=== PATIENT | female | born 1985 | race Caucasian/White ===

== ENCOUNTER 2016-10-29 08:24 | Emergency (ER) | payer OTHER ==
[~2016-10-29] VITALS: Ht 170.2 cm; Wt 72.6 kg
[~2016-10-29 08:24] MED LIST: BACTRIM DS TAB1 EACH PO; CYCLOBENZAPRINE5 MG PO; NOHOMEMEDICATIONS; NORCO 5-325 TA1 EACH PO; PERCOCET 5-3251 EACH; TORADOL 10 MG T10 MG PO
[2016-10-29] MEDS ORDERED: MOBIC15 MG PO (09:09)
[2016-10-29] MEDS ORDERED: VALIUM5 MG PO (09:09)
[2016-10-29 09:40] VITALS: BP 118/81
== END 2016-10-29 09:41 | disposition home or self-care (01) ==
LOC: ER 08:24
DX: M46.1 Sacroiliitis, not elsewhere classified (principal); F17.210 Nicotine dependence, cigarettes, uncomplicated; F10.99 Alcohol use, unspecified with unspecified alcohol-induced disorder; Z87.09 Personal history of other diseases of the respiratory system

== ENCOUNTER 2020-04-08 07:25 | Emergency (ER) | payer BC ==
[~2020-04-08] VITALS: Ht 172.7 cm; Wt 90.7 kg
[~2020-04-08 07:25] MED LIST changes: +MOBIC15 MG PO; +VALIUM5 MG PO
[2020-04-08 08:45] VITALS: BP 130/91
[2020-04-08] MEDS ORDERED: FLEXERIL PO (08:59)
[2020-04-08] MEDS ORDERED: NAPROSYN500 MG PO (08:59)
[2020-04-08] MEDS ORDERED: TRAMADOL 50 MG50 MG PO (08:59)
== END 2020-04-08 08:45 | disposition home or self-care (01) ==
LOC: ER 07:25
DX: M54.5 Low back pain (principal); F17.210 Nicotine dependence, cigarettes, uncomplicated; Z86.2 Personal history of diseases of the blood and blood-forming organs and certain disorders involving the immune mechanism